=== PATIENT | male | born 1940 | race Caucasian/White ===

== ENCOUNTER → 2018-02-07 | Outpatient (CLI) | payer OTHER | LOC: ULTRA 04:22 | DX: E04.1 Nontoxic single thyroid nodule (principal) ==

== ENCOUNTER 2018-02-25 05:24 | Day surgery (SDC) | payer OTHER ==
[~2018-02-25] VITALS: Ht 180.3 cm; Wt 94.3 kg
--- NOTE | ~2018-02-25 | O ---
[facility] [place] [address] OPERATIVE REPORT Name: CARRI GARCIA JADE Room #: DEP [facility]..#: [id number] Admission: 02/25/18 Attend Phys: Sánchez Conklin MD Discharge: 02/25/18 Date of : 40 Report #: [id number] THIS REPORT FOR: //name// CC: Sánchez Almaraz DATE OF SERVICE: 02/25/2018 PREOPERATIVE DIAGNOSES: 1. Large left inguinal hernia. 2. Possible right inguinal hernia. 3. Umbilical hernia. POSTOPERATIVE DIAGNOSES: Bilateral indirect hernia, left, large. Umbilical hernia. PROCEDURES PERFORMED: Laparoscopic repair of bilateral indirect inguinal hernia with mesh and repair of umbilical hernia. SURGEON: Sánchez Conklin M.D. ANESTHESIA: General anesthesia. COMPLICATIONS: None. ESTIMATED BLOOD LOSS: 5 mL. PROCEDURE NOTE: With the patient under general anesthesia, San catheter was placed, IV antibiotic was administered. Timeout was performed. Abdomen was prepped and draped in sterile fashion. A 0.25% Marcaine was used to anesthetize the skin adjacent to the umbilicus on the right side and carried underneath the umbilicus. The anterior rectus fascia on the right side was identified. This was incised transversely. The muscle was spread. The space between the rectus muscle and the posterior sheath was bluntly dissected. A balloon trocar was placed through the space. Just inferior to this about 2 inches below the umbilicus, a 5 mm trocar was placed. The properitoneal space was opened up using cautery and blunt dissection. Once the right-sided wall was opened lateral to the epigastric artery on the right, a second 5 mm trocar was placed. The left side was dissected free. The left cord structures identified. The left inferior epigastric vessel was preserved from harm. A large indirect hernia sac was found over the cord structure. At the level of the internal ring, there is some scarring of the sac to the tissue surrounding it. This was freed up. More distal hernia sac was brought out of the canal. Again, a large defect was found. The hernia sac was free from the underlying cord. The vas was identified. There is a vessel adjacent to the vas that was free from the hernia sac. The hernia sac was free circumferentially. The hernia sac was [facility] [address] [place] [address] OPERATIVE REPORT Name: RADHACARRI [place] Room #: DEP [facility] [place] M.R.#: [id number] Admission: 02/25/18 Attend Phys: Sánchez Conklin MD Discharge: 02/25/18 Date of : 40 Report #: [id number] reduced back into the properitoneal space. There was also a cord lipoma found. On the right side, dissection was carried out exposing the area right over the cord, and there is a small indirect sac present on the right side also. There was a fairly significant size cord lipoma. This was reduced. There is an opening in the peritoneum just proximal to the hernia sac. The lipoma was placed over the opening in the peritoneum. Left-sided mesh was placed, large left 3DMax lightweight was used. This opened up and positioned and then tacked in place with SorbaFix. Laterally, it was tacked to the wall and then inferiorly to Siddharth ligament, then superiorly to the rectus muscle. A right-sided mesh was then used, and this was also positioned and tacked in place. The mesh was tacked laterally to the abdominal wall, inferiorly to Siddharth ligament, superomedially to the rectus muscle. Both mesh seated well. The fat was brought medial to the mesh, excluded out of the internal ring. This kept away from the internal ring. CO2 was evacuated. There was quite a bit of pneumoperitoneum. The incision was then carried underneath the umbilicus. The skin was lifted off the umbilicus. There is a 1.5 fatty tissue that protruded through and through the fascia defect. This was free from the overlying skin. The fascia defect was isolated, and it is about 1 cm in size. The hernia sac was opened, and there was some release of CO2, but there is a kind of a flap valve effect. I decided to go ahead and directly placed a 5 mm trocar into the peritoneal opening and this evacuated the area intraabdominally well without difficulty and deflated them well. The fascia defect on the umbilicus, and the umbilical hernia was closed with [id number] Prolene suture x 2. Skin was irrigated. The skin was tacked back down up to the fascia level of the umbilicus. Skin was closed with 5-0 PDS. Steri-Strip, Band-Aids applied over the 5 mm trocar site. At the umbilicus, fluffy gauze and Op-Site were used for dressing. The patient tolerated the procedure well and was taken to the recovery. By: [id number] Sánchez Conklin MD /nt
[~2018-02-25 05:24] MED LIST: ASPIR 8181 MG PO; ATORVASTATIN CA40 MG PO; BYSTOLIC2.5 MG PO; CENTRUM SILVER1 EAC2 PO; CO Q-10100 MG PO; GLUCOPHAGE XR500 MG PO; VITAMIN C500 M2 PO; VITAMIN D2000 UNIT PO; ZANTAC 150MG T150 MG PO; ZYRTEC10 M5 PO
[2018-02-25 10:00] VITALS: BP 121/78
[2018-02-25] MEDS ORDERED: NORCO 5-325 TA1 EACH PO (12:15)
[2018-02-25 12:43] VITALS: BP 121/78
== END 2018-02-25 13:35 | disposition home or self-care (01) ==
LOC: TBA 05:24 → OR 05:24 → TBA 05:25 → OR 08:14
DX: K40.20 Bilateral inguinal hernia, without obstruction or gangrene, not specified as recurrent (principal); K42.9 Umbilical hernia without obstruction or gangrene; D17.6 Benign lipomatous neoplasm of spermatic cord; I10 Essential (primary) hypertension; E11.9 Type 2 diabetes mellitus without complications; Z98.890 Other specified postprocedural states; Z85.828 Personal history of other malignant neoplasm of skin; Z87.891 Personal history of nicotine dependence; Z79.82 Long term (current) use of aspirin; Z79.899 Other long term (current) drug therapy
CPT/HCPCS: 50010; 50101; 50411; 50455; 50507; 50555; 50848; 53065; 53307; 56525; 56526; 62110; 62900; 70005